=== PATIENT | female | born 1960 | race Caucasian/White ===

== ENCOUNTER 2017-07-15 22:50 | Emergency (ER) | payer MEDICAID ==
[~2017-07-15] VITALS: Ht 160 cm; Wt 65.9 kg
[~2017-07-15 22:50] MED LIST: ATI1T PO; ATOR10TA87 PO; HTN MED; HYDR-569 PO; MOT200T PO; NORCO10T PO
[2017-07-15 22:54] VITALS: BP 184/91
== END 2017-07-15 23:57 | disposition left against medical advice (07) ==
LOC: ER 22:51
DX: M54.2 Cervicalgia (principal); Z53.21 Procedure and treatment not carried out due to patient leaving prior to being seen by health care provider

== ENCOUNTER 2019-03-12 12:49 | Emergency (ER) | payer MEDICAID ==
[~2019-03-12] VITALS: Ht 162.6 cm; Wt 65.9 kg
[~2019-03-12 12:49] MED LIST changes: +HYDR-4383 PO; -HYDR-569 PO
[2019-03-12] MEDS ORDERED: ACET-2615 PO (13:25)
[2019-03-12] MEDS ORDERED: MELO-100 PO (13:25)
[2019-03-12] MEDS ORDERED: ketorolac trometh. 30mg/ml inj. IV ONE (13:25)
[2019-03-12] MEDS ORDERED: orphenadrine citrate 60mg/2ml inj. IM ONE (13:25)
[2019-03-12] MEDS ORDERED: HYDR-3965 PO (13:25)
[2019-03-12] MEDS ORDERED: acetaminophen 325mg tablet PO ONE (13:25)
[2019-03-12] MEDS ORDERED: HYDROcodone/acetaminophen 5mg/325mg tablet PO ONE (13:25)
[2019-03-12] MEDS ORDERED: ondansetron 4mg rapidly disintigrating tab PO ONE (13:25)
[2019-03-12] MEDS ORDERED: CYCL-1 PO (13:25)
[2019-03-12 13:43] VITALS: BP 142/90
== END 2019-03-12 13:52 | disposition home or self-care (01) ==
LOC: ER 12:50
DX: M25.511 Pain in right shoulder (principal); I10 Essential (primary) hypertension; G89.29 Other chronic pain; F41.9 Anxiety disorder, unspecified; F32.9 Major depressive disorder, single episode, unspecified; Z90.49 Acquired absence of other specified parts of digestive tract; Z98.890 Other specified postprocedural states; Z56.0 Unemployment, unspecified; Z79.899 Other long term (current) drug therapy
CPT/HCPCS: 96372; 96374; 99284; J1885; J2360

== ENCOUNTER 2019-04-08 15:59 | Inpatient (IN) | payer MEDICAID ==
[2019-04-08] VITALS (13 sets, daily range): BP systolic 111–149; BP diastolic 68–89
[~2019-04-08] VITALS: Ht 162.6 cm; Wt 80.0 kg
[~2019-04-08 15:59] MED LIST changes: +ACET-2615 PO; +CYCL-1 PO; +HYDR-3965 PO; +MELO-100 PO; +STEMI BOX INJ NR
[2019-04-08] MEDS ORDERED: normal saline 1000ml 1,000 ML IV ONE ×2 (16:07→18:10)
[2019-04-08] MEDS ORDERED: heparin 25,000 UNIT/250ml bag 250 ML IV SCH (16:08)
[2019-04-08] MEDS ORDERED: heparin 10,000 units/1 ML INJ IV ONE ×2 (16:10→16:20)
--- NOTE | 2019-04-08 16:10 | NUR ---
patient prepped for orthodontic laboratory technician,shaved bilateral groin cleaned with chlorhexidine,patient changed in a gown.on nitro 10mcg.
[2019-04-08] MEDS: nitroGLYCERIN-Tridil 50MG/D5W 250 ML IV PRN ×2 (16:17→16:38)
[2019-04-08 16:20] LABS: BASOPHILS % (AUTO) 0.3 % (0-1); EOSINOPHILS # (AUTO) 0.2 X10'3 (0-0.9); EOSINOPHILS % (AUTO) 2.1 % (0-6); HEMATOCRIT 40.9 % (35.0-45.0); HEMOGLOBIN 13.5 g/dl (12.0-16.0); LYMPHOCYTES # (AUTO) 2.2 X10'3 (1.1-4.8); LYMPHOCYTES % (AUTO) 26.8 % (21-51); MEAN CORPUSCULAR HEMOGLOBIN 30.2 PG (27.0-31.0); MEAN CORPUSCULAR VOLUME 91.5 FL (78-98); MEAN PLATELET VOLUME 10.1 FL (7.4-10.4); MONOCYTES # (AUTO) 0.6 X10'3 (0-0.9); NEUTROPHILS # (AUTO) 5.3 X10'3 (1.8-7.7); NEUTROPHILS % (AUTO) 63.8 % (42-75); PLATELET COUNT 230 X10'3 (140-440); RED BLOOD COUNT 4.47 X10'6 (4.20-5.60); RED CELL DISTRIBUTION WIDTH 14.2 % (11.5-14.5); WHITE BLOOD COUNT 8.4 X10'3 (4.5-11.0)
[2019-04-08] MEDS ORDERED: heparin 10,000 units/1 ML INJ IV PRN (16:20)
[2019-04-08] MEDS ORDERED: morphine 4 MG/ML inj SYRINge IV ONE (16:20)
[2019-04-08] MEDS ORDERED: normal saline 1000ML IV soln IVB ONE (16:25)
--- NOTE | 2019-04-08 16:30 | NUR ---
awaiting for slab stripper to take patient.
--- NOTE | 2019-04-08 16:31 | NUR ---
dr. simons at bedside,changed nitro drip to 15 mcg/hr per MD order.
--- NOTE | 2019-04-08 16:32 | NUR ---
temp mary placed.
--- NOTE | 2019-04-08 16:36 | NUR ---
Bhupinder cheesemaking laborer at bedside.
[2019-04-08 16:37] LABS: ALANINE AMINOTRANSFERASE 32 U/L (12-78); ALBUMIN 3.4 G/DL (3.4-5.0); ALBUMIN/GLOBULIN RATIO 0.9 (1.1-1.5); ALKALINE PHOSPHATASE 131 IU/L (46-116); ANION GAP 11 (8-16); ASPARTATE AMINO TRANSFERASE 21 U/L (10-37); BILIRUBIN,TOTAL 0.3 MG/DL (0.1-1.0); BLOOD UREA NITROGEN 18 MG/DL (7-18); BUN/CREATININE RATIO 20.5 (6.6-38.0); CHLORIDE 107 MMOL/L (99-107); CREATININE 0.88 MG/DL (0.40-0.90); GLUCOSE 140 MG/DL (70-104); POTASSIUM 4.1 MMOL/L (3.5-5.1); SODIUM 140 MMOL/L (135-145); TOTAL CARBON DIOXIDE 21.8 MMOL/L (24-32); TOTAL PROTEIN 7.2 G/DL (6.4-8.2); eGFR 66 ML/MIN
--- NOTE | 2019-04-08 16:38 | NUR ---
BP 126/79mmhg,Dr. Estrada at bedside,changed nitro drip to 20mcg/hr.
--- NOTE | 2019-04-08 16:40 | NUR ---
patient to laboratory miller.
[2019-04-08 16:41] LABS: PARTIAL THROMBOPLASTIN TIME 27 SECONDS (22-32)
[2019-04-08] MEDS ORDERED: midazolam 2 mg/2 ml injection ONE (16:46)
[2019-04-08] MEDS ORDERED: heparin 1,000unit/ml 10ml vial 10 ML ONE (16:46)
[2019-04-08] MEDS ORDERED: iohexol 350 MG/1 ML 200ml bottle ONE (16:46)
[2019-04-08] MEDS ORDERED: fentaNYL/PF 50MCG/1 ML 2ML syringe ONE (16:46)
[2019-04-08] MEDS ORDERED: LIDOcaine 1% (10mg/ml)w/preservative injection 20ml MDV ONE (16:46)
[2019-04-08] MEDS ORDERED: tirofiban 12.5mg in NS 250mL 250 ML IV ONE (17:24)
--- NOTE | 2019-04-08 17:50 | NUR ---
RECEIVED BEDSIDE REPORT FORM KRISSY APDILLA. PT R GROIN SCANT BLEEDING TO DRSG. PRESSURE APPLIED X 15 MIN. DRAINAGE CIRCLED. PT RESTING. VS WNL. PT WITH NS INFUSING @100, AGGRASTAT INFUSING. ORDERS FAXED TO PHARMACY. Problems reprioritized. Patient report given, questions answered & plan of care reviewed with ELMER PADILLA. Addendum: 04/08/19 at 1825 by Bharati Maria RN Amended: Links added.
[2019-04-08] MEDS ORDERED: nitroGLYCERIN 0.4mg SUBLingual tab SL PRN (18:10)
[2019-04-08] MEDS ORDERED: OXAZEpam 15mg capsule PO PRN (18:10)
[2019-04-08] MEDS ORDERED: ondansetron/PF 4mg/2ml inj IV PRN (18:10)
[2019-04-08] MEDS ORDERED: proCHLORperazine 10 MG/2 ml inj IV PRN (18:10)
[2019-04-08] MEDS ORDERED: clopidogrel 300mg tablet PO ONE (18:10)
[2019-04-08] MEDS: atorvastatin 20mg tablet PO SCH (21:00)
[2019-04-08] MEDS: HYDROcodone/acetaminophen 5mg/325mg tablet PO PRN (23:38)
[2019-04-09 02:00] VITALS: BP 108/55
--- NOTE | 2019-04-09 04:24 | NUR ---
Student documentation: I have reviewed and agree with all interventions, assessments performed and documented by Luz CURTIS. Student Medication Administration: For this medication-pass time frame, all medication were reviewed, dispensed, administered and documented per hospital policy by Luz CURTIS.
--- NOTE | 2019-04-09 04:25 | NUR ---
[place] Medication Administration: For this medication-pass time frame, all medication were reviewed, dispensed, administered and documented per hospital policy by Jessenia PADILLA. [facility] documentation: I have reviewed all interventions, assessments performed and documented by Jessenia PADILLA.
[2019-04-09 06:00] VITALS: BP 126/55
--- NOTE | 2019-04-09 06:00 | NUR ---
Patient in room PCU 3018. I have received report from Annamaria PADILLA and had the opportunity to ask questions and assume patient care.
--- NOTE | 2019-04-09 06:32 | NUR ---
Problems reprioritized. Patient report given, questions answered & plan of care reviewed with Franck PADILLA.
[2019-04-09 07:33] LABS: CHOL/HDL RATIO 7.2 (0.00-4.99); CHOLESTEROL 173 MG/DL (0-200); HDL CHOLESTEROL 24 MG/DL (35-60); LDL CHOLESTEROL 104 MG/DL (50-100); TRIGLYCERIDES 326 MG/DL (20-135)
[2019-04-09] MEDS: clopidogrel 75mg tablet PO SCH (07:43)
[2019-04-09] MEDS: HYDROcodone/acetaminophen 5mg/325mg tablet PO PRN (07:44)
[2019-04-09] MEDS: aspirin 81mg tablet.DR PO SCH (08:30)
[2019-04-09] MEDS: metoprolol tartrate 12.5mg (1/2 tablet) PO SCH ×2 (08:31→20:11)
[2019-04-09 08:53] LABS: BASOPHILS % (AUTO) 0.4 % (0-1); EOSINOPHILS # (AUTO) 0.1 X10'3 (0-0.9); EOSINOPHILS % (AUTO) 1.9 % (0-6); HEMOGLOBIN 11.6 g/dl (12.0-16.0); LYMPHOCYTES # (AUTO) 2.3 X10'3 (1.1-4.8); LYMPHOCYTES % (AUTO) 39.8 % (21-51); MEAN CORPUSCULAR HEMOGLOBIN 30.3 PG (27.0-31.0); MEAN CORPUSCULAR HGB CONC 33.2 g/dL (33.0-36.5); MEAN CORPUSCULAR VOLUME 91.2 FL (78-98); MEAN PLATELET VOLUME 10.5 FL (7.4-10.4); MONOCYTES # (AUTO) 0.4 X10'3 (0-0.9); MONOCYTES % (AUTO) 6.8 % (2-12); NEUTROPHILS % (AUTO) 51.1 % (42-75); PLATELET COUNT 187 X10'3 (140-440); RED BLOOD COUNT 3.84 X10'6 (4.20-5.60); SODIUM 141 MMOL/L (135-145); WHITE BLOOD COUNT 5.8 X10'3 (4.5-11.0)
[2019-04-09 08:55] LABS: ALBUMIN 2.8 G/DL (3.4-5.0); ANION GAP 11 (8-16); BLOOD UREA NITROGEN 17 MG/DL (7-18); BUN/CREATININE RATIO 21.8 (6.6-38.0); CALCIUM 7.5 MG/DL (8.5-10.1); CHLORIDE 108 MMOL/L (99-107); CREATININE 0.78 MG/DL (0.40-0.90); GLUCOSE 105 MG/DL (70-104); POTASSIUM 4.3 MMOL/L (3.5-5.1); TOTAL CARBON DIOXIDE 21.8 MMOL/L (24-32); eGFR 76 ML/MIN
[2019-04-09 09:42] LABS: LARGE PLATELETS FEW; PLATELET ESTIMATE NORMAL
[2019-04-09 11:00] VITALS: BP 121/70
--- NOTE | 2019-04-09 12:41 | NUR ---
No lunch tray sent up. Faxed late tray request to dietary with pt's preferred items requested. Provided with yogurt while waiting.
[2019-04-09] MEDS: nicotine 21mg patch - 24 hr TD SCH (12:49)
[2019-04-09 15:00] VITALS: BP 117/60
[2019-04-09] MEDS: HYDROcodone/acetaminophen 10/325mg tab PO PRN (15:44)
[2019-04-09] MEDS ORDERED: FLUO-1 PO (16:42)
[2019-04-09] MEDS ORDERED: UMEC1DIS IH (16:42)
[2019-04-09] MEDS ORDERED: ACET-75 PO (16:42)
[2019-04-09] MEDS ORDERED: NITR0.4T48 PO (16:42)
[2019-04-09] MEDS ORDERED: ALBU90AE IH (16:42)
[2019-04-09] MEDS ORDERED: AMLO2.5T5 PO (16:42)
[2019-04-09 18:00] VITALS: BP 128/82
--- NOTE | 2019-04-09 19:08 | NUR ---
Patient in room PCU 3018. I have received report from VALERIE Juárez and had the opportunity to ask questions and assume patient care. Patient is awake, pleasant, and in no apparent distress. Denies Chest pain, but experiencing chronic lower back pain states pain level 5 from 0-10. Denies any other needs at this time. Will continue to monitor.
[2019-04-09] MEDS: atorvastatin 20mg tablet PO SCH (20:11)
[2019-04-09 22:00] VITALS: BP 90/58
[2019-04-10] MEDS: HYDROcodone/acetaminophen 10/325mg tab PO PRN ×2 (01:48→08:18)
[2019-04-10 03:00] VITALS: BP 98/80
--- NOTE | 2019-04-10 06:11 | NUR ---
Problems reprioritized. Patient report given, questions answered & plan of care reviewed with VALERIE Sarmiento.
[2019-04-10 06:30] VITALS: BP 149/81
[2019-04-10 06:37] LABS: BASOPHILS % (AUTO) 0.3 % (0-1); EOSINOPHILS # (AUTO) 0.1 X10'3 (0-0.9); EOSINOPHILS % (AUTO) 2.2 % (0-6); HEMATOCRIT 32.5 % (35.0-45.0); LYMPHOCYTES # (AUTO) 2.6 X10'3 (1.1-4.8); LYMPHOCYTES % (AUTO) 37.3 % (21-51); MEAN CORPUSCULAR HEMOGLOBIN 30.7 PG (27.0-31.0); MEAN CORPUSCULAR HGB CONC 33.7 g/dL (33.0-36.5); MEAN CORPUSCULAR VOLUME 91.2 FL (78-98); MEAN PLATELET VOLUME 10.4 FL (7.4-10.4); MONOCYTES # (AUTO) 0.5 X10'3 (0-0.9); MONOCYTES % (AUTO) 7.8 % (2-12); NEUTROPHILS # (AUTO) 3.6 X10'3 (1.8-7.7); NEUTROPHILS % (AUTO) 52.4 % (42-75); PLATELET COUNT 169 X10'3 (140-440); RED BLOOD COUNT 3.56 X10'6 (4.20-5.60); RED CELL DISTRIBUTION WIDTH 13.9 % (11.5-14.5); WHITE BLOOD COUNT 6.9 X10'3 (4.5-11.0)
[2019-04-10 06:38] LABS: ALBUMIN 2.7 G/DL (3.4-5.0); ANION GAP 8 (8-16); BLOOD UREA NITROGEN 18 MG/DL (7-18); BUN/CREATININE RATIO 22.8 (6.6-38.0); CHLORIDE 108 MMOL/L (99-107); CREATININE 0.79 MG/DL (0.40-0.90); GLUCOSE 96 MG/DL (70-104); POTASSIUM 4.3 MMOL/L (3.5-5.1); SODIUM 141 MMOL/L (135-145); TOTAL CARBON DIOXIDE 25.3 MMOL/L (24-32); eGFR 75 ML/MIN
--- NOTE | 2019-04-10 06:39 | NUR ---
Patient in room PCU 3018A. I have received report from Jessenia and had the opportunity to ask questions and assume patient care.
[2019-04-10 07:14] VITALS: BP 149/81
[2019-04-10] MEDS: clopidogrel 75mg tablet PO SCH (08:12)
[2019-04-10] MEDS: aspirin 81mg tablet.DR PO SCH (08:12)
[2019-04-10 08:13] VITALS: BP_SYST 149
[2019-04-10] MEDS: metoprolol tartrate 12.5mg (1/2 tablet) PO SCH (08:13)
[2019-04-10] MEDS: nicotine 21mg patch - 24 hr TD SCH (08:14)
[2019-04-10] MEDS ORDERED: ASPI-1071 PO (08:25)
[2019-04-10] MEDS ORDERED: METO25TA6 PO (08:25)
[2019-04-10] MEDS ORDERED: ATOR40TA PO (08:25)
[2019-04-10] MEDS ORDERED: CLOP75TA35 PO (08:25)
--- NOTE | 2019-04-10 10:45 | NUR ---
Per MD patient stable for discharge home, discharge packet printed and given to patient. All questions answered. New prescriptions faxed to [facility]. Patient instructed to f/u with Dr. Mann within 2 weeks. IV removed with catheter intact, tele monitor removed. Patient escorted via wheelchair to private vehicle with family.
== END 2019-04-10 10:47 | disposition home or self-care (01) | DRG 174 ==
LOC: ER 15:59 → UNDOADMIN 18:20 → PCU 3S 18:20
PROVIDERS: ADMIT Internal Medicine Interventional Cardiology; ATTEND Internal Medicine Interventional Cardiology
PROC: 4A023N7 Measurement of Cardiac Sampling and Pressure, Left Heart, Percutaneous Approach (ICD-10-PCS; principal; 2019-04-08)
PROC: 027034Z Dilation of Coronary Artery, One Artery with Drug-eluting Intraluminal Device, Percutaneous Approach (ICD-10-PCS; 2019-04-08)
PROC: B2111ZZ Fluoroscopy of Multiple Coronary Arteries using Low Osmolar Contrast (ICD-10-PCS; 2019-04-08)
PROC: B2151ZZ Fluoroscopy of Left Heart using Low Osmolar Contrast (ICD-10-PCS; 2019-04-08)
DX: I21.09 ST elevation (STEMI) myocardial infarction involving other coronary artery of anterior wall (principal); E78.5 Hyperlipidemia, unspecified; F17.210 Nicotine dependence, cigarettes, uncomplicated; I10 Essential (primary) hypertension; I25.10 Atherosclerotic heart disease of native coronary artery without angina pectoris; F32.9 Major depressive disorder, single episode, unspecified; J44.9 Chronic obstructive pulmonary disease, unspecified; Z79.899 Other long term (current) drug therapy; Z82.49 Family history of ischemic heart disease and other diseases of the circulatory system; Z83.3 Family history of diabetes mellitus; Z71.6 Tobacco abuse counseling
CPT/HCPCS: 36415; 71045; 80048; 80053; 80061; 84484; 85025; 85610; 85730; 87081; 93005; 93306; 93458; 96365; 96366; 96368; 96375; 96376; 99291; A4620; A6258; C1725; C1760; C1769; C1874; C9606; G0378; J1644; J2001; J2250; J2270; J3010; J3246; J3490; J7030; Q9967

== ENCOUNTER 2019-08-22 14:56 | Inpatient (IN) | payer MEDICAID ==
[~2019-08-22] VITALS: Ht 160 cm; Wt 80.0 kg
[~2019-08-22 14:56] MED LIST changes: -ACET-2615 PO; +ACET-75 PO; +ALBU90AE IH; +ASPI-1071 PO; -ATI1T PO; -ATOR10TA87 PO; +ATOR40TA PO; +CLOP75TA35 PO; -CYCL-1 PO; +FLUO-1 PO; -HTN MED; -HYDR-3965 PO; -HYDR-4383 PO; -MELO-100 PO; +METO25TA6 PO; -MOT200T PO; +NITR0.4T48 PO; -NORCO10T PO; -STEMI BOX INJ NR; +UMEC1DIS IH
[2019-08-22] MEDS ORDERED: morphine 4 MG/ML inj SYRINge IV ONE (15:10)
[2019-08-22] MEDS ORDERED: nitroGLYCERIN 0.4mg/hour patch TD ONE (15:10)
[2019-08-22 15:22] LABS: BASOPHILS % (AUTO) 0.3 % (0-1); EOSINOPHILS # (AUTO) 0.1 X10'3 (0-0.9); EOSINOPHILS % (AUTO) 1.5 % (0-6); HEMATOCRIT 40.9 % (35.0-45.0); HEMOGLOBIN 13.8 g/dl (12.0-16.0); LYMPHOCYTES # (AUTO) 2.4 X10'3 (1.1-4.8); LYMPHOCYTES % (AUTO) 31.2 % (21-51); MEAN CORPUSCULAR HEMOGLOBIN 28.9 PG (27.0-31.0); MEAN CORPUSCULAR HGB CONC 33.6 g/dL (33.0-36.5); MEAN CORPUSCULAR VOLUME 85.9 FL (78-98); MEAN PLATELET VOLUME 9.9 FL (7.4-10.4); MONOCYTES # (AUTO) 0.6 X10'3 (0-0.9); MONOCYTES % (AUTO) 7.8 % (2-12); NEUTROPHILS # (AUTO) 4.5 X10'3 (1.8-7.7); NEUTROPHILS % (AUTO) 59.2 % (42-75); PLATELET COUNT 199 X10'3 (140-440); RED BLOOD COUNT 4.76 X10'6 (4.20-5.60); RED CELL DISTRIBUTION WIDTH 14.9 % (11.5-14.5); WHITE BLOOD COUNT 7.6 X10'3 (4.5-11.0)
[2019-08-22 15:23] LABS: PARTIAL THROMBOPLASTIN TIME 26 SECONDS (22-32)
[2019-08-22 15:26] LABS: ALANINE AMINOTRANSFERASE 27 U/L (12-78); ALBUMIN 3.9 G/DL (3.4-5.0); ALBUMIN/GLOBULIN RATIO 1.1 (1.1-1.5); ALKALINE PHOSPHATASE 111 IU/L (46-116); ANION GAP 6 (8-16); ASPARTATE AMINO TRANSFERASE 21 U/L (10-37); BILIRUBIN,TOTAL 0.5 MG/DL (0.1-1.0); BLOOD UREA NITROGEN 19 MG/DL (7-18); BUN/CREATININE RATIO 24.1 (6.6-38.0); CALCIUM 9.1 MG/DL (8.5-10.1); CHLORIDE 106 MMOL/L (99-107); CREATININE 0.79 MG/DL (0.40-0.90); GLUCOSE 90 MG/DL (70-104); POTASSIUM 4.7 MMOL/L (3.5-5.1); SODIUM 140 MMOL/L (135-145); TOTAL PROTEIN 7.6 G/DL (6.4-8.2); eGFR 75 ML/MIN
[2019-08-22 15:32] LABS: ETHANOL < 0.010 GM/DL (0.0-0.010); MAGNESIUM 2.3 MG/DL (1.5-2.4)
[2019-08-22] MEDS ORDERED: normal saline 1000ml 1,000 ML IV SCH (16:18)
[2019-08-22] MEDS ORDERED: HYDROcodone/acetaminophen 5mg/325mg tablet PO PRN (16:20)
[2019-08-22] MEDS ORDERED: potassium Cl 20 mEq SR tablet PO PRN ×2 (16:20)
[2019-08-22] MEDS ORDERED: morphine 2 MG/ML inj. syringe IV PRN ×2 (16:20)
[2019-08-22] MEDS ORDERED: magnesium Cl slow-release 64mg tablet PO PRN (16:20)
[2019-08-22] MEDS ORDERED: magnesium 2GM in 50ml NS 50 ML IV PRN (16:20)
[2019-08-22] MEDS ORDERED: diphenhydrAMINE 25mg capsule PO PRN (16:20)
[2019-08-22] MEDS ORDERED: acetaminophen 650mg rectal suppository RC PRN (16:20)
[2019-08-22] MEDS ORDERED: bisacodyl 10mg suppository rectal RC PRN (16:20)
[2019-08-22] MEDS ORDERED: ondansetron/PF 4mg/2ml inj IV PRN (16:20)
[2019-08-22] MEDS ORDERED: magnesium 4gm in 100ml NS 100 ML IV PRN (16:20)
[2019-08-22] MEDS ORDERED: HYDROcodone/acetaminophen 10/325mg tab PO PRN (16:20)
[2019-08-22] MEDS ORDERED: acetaminophen 325mg tablet PO PRN ×2 (16:20)
[2019-08-22] MEDS ORDERED: mag hydrox/Alum hydrox/simeth 30ml oral suspension PO PRN (16:20)
[2019-08-22] MEDS ORDERED: magnesium hydroxide 30ml (MOM) UD suspension PO PRN (16:20)
[2019-08-22] MEDS ORDERED: potassium CL 10mEq/100ml bag 100 ML IV PRN ×2 (16:20)
[2019-08-22 17:02] LABS: CLARITY,URINE CLEAR (Clear); COLOR,URINE YELLOW (Yellow); GLUCOSE, URINE NEGATIVE (Neg); KETONES,URINE NEGATIVE (Neg); LEUKOCYTE ESTERASE ,URINE SMALL (Neg); NITRITES, URINE NEGATIVE (Neg); OCCULT BLOOD,URINE TRACE-INTACT (Neg); PROTEIN,URINE NEGATIVE (Neg); UROBILINOGEN,URINE 0.2 E.U/dL (0.2-1.0)
[2019-08-22 17:05] LABS: UA COLLECTION TYPE CLN CATCH MIDSTREAM
[2019-08-22 17:09] LABS: BACTERIA,URINE FEW /HPF (Neg); RBC,URINE 0-2 /HPF (0-2); SQUAMOUS EPITHELIAL CELL,UR FEW /LPF (FEW)
[2019-08-22 17:10] LABS: HYALINE CASTS 0-3 /LPF (NEGATIVE); WBC,URINE 20-30 /HPF (0-4)
[2019-08-22] MEDS ORDERED: ATOR40TA72 PO (17:15)
[2019-08-22] MEDS ORDERED: PANT20TA3 PO (17:15)
[2019-08-22] MEDS ORDERED: LISI-600 PO (17:15)
[2019-08-22] MEDS ORDERED: ASPI-1265 PO (17:15)
[2019-08-22] MEDS ORDERED: CLOP75TA35 PO (17:15)
[2019-08-22 17:17] LABS: URINE AMPHETAMINE SCREEN NEGATIVE (Neg); URINE BARBITUATE SCREEN NEGATIVE (Neg); URINE BENZODIAZEPINES SCREEN NEGATIVE (Neg); URINE CANNABINOID SCREEN NEGATIVE (Neg); URINE COCAINE SCREEN NEGATIVE (Neg); URINE METHADONE SCREEN NEGATIVE (Neg); URINE OPIATE SCREEN POSITIVE (Neg); URINE PHENCYCLIDINE SCREEN NEGATIVE (Neg)
--- NOTE | 2019-08-22 19:20 | NUR ---
I have received report from VALERIE Tijerina in ER and had the opportunity to ask questions; awaiting to assume patient care.
[2019-08-22 19:25] VITALS: BP 149/85
--- NOTE | 2019-08-22 19:25 | NUR ---
Patient up to floor via gurney. On 2L NC and stable at this time. Patient brought wallet, shoes, pants, sweat shirt and two watches and placed on bedside table. Obtained 2 lighters and two vials of SL Nitro- will send to pharmacy. No complaints of CP at this time. Will continue to monitor closely.
[2019-08-22] MEDS: K and/or MAG REPLACEMENT MC SCH (19:55)
[2019-08-22] MEDS: heparin, porcine 5000 units/ml vial SQ SCH (20:20)
[2019-08-22] MEDS: metoprolol tartrate 25mg tablet PO SCH (20:21)
[2019-08-22] MEDS ORDERED: ipratropium/albuterol 3ml nebule NEB PRN (21:50)
[2019-08-22] MEDS ORDERED: methylPREDNISolone sod succ 125mg/2ml vial IV ONE (21:50)
[2019-08-22] MEDS: CefTRIAXone/D5W-Rocephin 1gm 50 ML IV SCH (22:28)
[2019-08-22] MEDS: azithromycin 250mg tablet PO SCH (22:29)
--- NOTE | 2019-08-22 22:52 | NUR ---
Dr. Sharpe up to floor and informed him of patient's HR of 40 and sustaining in 50's. Per Dr. Sharpe, will discontinue BP medications and will reassess tomorrow. No additional BP medications scheduled for tonight. Will continue to monitor closely.
[2019-08-22 23:00] VITALS: BP 113/69
[2019-08-23] MEDS: methylPREDNISolone sod succ 125mg/2ml vial IV SCH ×2 (02:24→08:25)
[2019-08-23 02:48] VITALS: BP 120/65
[2019-08-23] MEDS: ipratropium/albuterol 3ml nebule NEB SCH ×2 (03:10→08:24)
[2019-08-23 03:34] LABS: BASOPHILS % (AUTO) 0.1 % (0-1); EOSINOPHILS % (AUTO) 0.2 % (0-6); HEMATOCRIT 39.5 % (35.0-45.0); HEMOGLOBIN 13.1 g/dl (12.0-16.0); LYMPHOCYTES # (AUTO) 0.8 X10'3 (1.1-4.8); LYMPHOCYTES % (AUTO) 15.4 % (21-51); MEAN CORPUSCULAR HGB CONC 33.1 g/dL (33.0-36.5); MEAN CORPUSCULAR VOLUME 87.7 FL (78-98); MONOCYTES # (AUTO) 0.1 X10'3 (0-0.9); MONOCYTES % (AUTO) 1.4 % (2-12); NEUTROPHILS # (AUTO) 4.5 X10'3 (1.8-7.7); NEUTROPHILS % (AUTO) 82.9 % (42-75); PLATELET COUNT 179 X10'3 (140-440); RED CELL DISTRIBUTION WIDTH 14.7 % (11.5-14.5); WHITE BLOOD COUNT 5.4 X10'3 (4.5-11.0)
[2019-08-23 03:40] LABS: ALANINE AMINOTRANSFERASE 91 U/L (12-78); ALBUMIN 3.5 G/DL (3.4-5.0); ALBUMIN/GLOBULIN RATIO 0.9 (1.1-1.5); ALKALINE PHOSPHATASE 124 IU/L (46-116); ANION GAP 8 (8-16); ASPARTATE AMINO TRANSFERASE 83 U/L (10-37); BILIRUBIN,TOTAL 0.5 MG/DL (0.1-1.0); BLOOD UREA NITROGEN 21 MG/DL (7-18); BUN/CREATININE RATIO 23.6 (6.6-38.0); CALCIUM 8.9 MG/DL (8.5-10.1); CHLORIDE 105 MMOL/L (99-107); CREATININE 0.89 MG/DL (0.40-0.90); GLUCOSE 152 MG/DL (70-104); POTASSIUM 4.5 MMOL/L (3.5-5.1); SODIUM 137 MMOL/L (135-145); TOTAL CARBON DIOXIDE 24.5 MMOL/L (24-32); TOTAL PROTEIN 7.2 G/DL (6.4-8.2); eGFR 65 ML/MIN
[2019-08-23 03:44] LABS: MAGNESIUM 2.2 MG/DL (1.5-2.4); PHOSPHORUS 3.7 MG/DL (2.3-4.5)
--- NOTE | 2019-08-23 06:19 | NUR ---
Problems reprioritized. Patient report given, questions answered & plan of care reviewed with VALERIE Andrade and VALERIE Pena.
--- NOTE | 2019-08-23 06:23 | NUR ---
Patient in room PCU 3028. I have received report from Romario and had the opportunity to ask questions and assume patient care.
--- NOTE | 2019-08-23 06:36 | NUR ---
Patient in room PCU 3028. I have received report from Romario PADILLA and had the opportunity to ask questions and assume patient care. Patient asleep and resting comfortably. In no acute distress. Will continue to monitor.
[2019-08-23 07:00] VITALS: BP 121/72
[2019-08-23] MEDS ORDERED: pantoprazole 40mg Tablet.DR PO SCH (07:30)
[2019-08-23] MEDS ORDERED: atorvastatin 20mg tablet PO SCH (08:00)
[2019-08-23] MEDS ORDERED: lisinopril 10 MG tablet PO SCH (08:00)
[2019-08-23] MEDS ORDERED: aspirin 81mg tab.chew PO SCH (08:00)
[2019-08-23] MEDS: K and/or MAG REPLACEMENT MC SCH (08:00)
[2019-08-23] MEDS ORDERED: clopidogrel 75mg tablet PO SCH (08:00)
[2019-08-23] MEDS: azithromycin 250mg tablet PO SCH (08:19)
[2019-08-23] MEDS: heparin, porcine 5000 units/ml vial SQ SCH (08:22)
[2019-08-23] MEDS: metoprolol tartrate 25mg tablet PO SCH (08:24)
[2019-08-23] MEDS: CefTRIAXone/D5W-Rocephin 1gm 50 ML IV SCH ×3 (08:26→12:03)
[2019-08-23] MEDS ORDERED: AZI25OT PO (09:34)
[2019-08-23] MEDS ORDERED: PRED10TA23 PO (09:34)
[2019-08-23] MEDS ORDERED: CEFD300C3 PO (09:34)
[2019-08-23] MEDS ORDERED: pneumococcal 23-VAL P-sac vacc 25 mcg/0.5ml vial IMVAC ONE (10:00)
[2019-08-23] MEDS ORDERED: [UNRECOGNIZED DRUG - CODE] TD (10:48)
[2019-08-23 11:00] VITALS: BP 135/68
--- NOTE | 2019-08-23 14:08 | NUR ---
patient is stable for discharge per MD orders, all discharge instructions reviewed with patient and questions , new prescriptions called into [facility] in [facility], PIV DC'd, TELE DC'd, belongings collected and sent with patient, patient walked to lobby, picked up by daughter.
--- NOTE | 2019-08-23 15:19 | NUR ---
[place] documentation: I have reviewed and agree with all interventions, assessments performed and documented by VALERIE Pena. [place] Medication Administration: For this medication-pass time frame, all medication were reviewed, dispensed, administered and documented per hospital policy by VALERIE Pena.
== END 2019-08-23 13:55 | disposition home or self-care (01) | DRG 198 ==
LOC: ER 14:56 → ED HOLD 16:18 → PCU 3S 19:20 → OBSVTOIN 08-23 08:20
PROVIDERS: ADMIT Family Medicine; ATTEND Family Medicine
PROC: 3E0234Z Introduction of Serum, Toxoid and Vaccine into Muscle, Percutaneous Approach (ICD-10-PCS; principal; 2019-08-23)
DX: I24.9 Acute ischemic heart disease, unspecified (principal); J18.9 Pneumonia, unspecified organism; R07.89 Other chest pain; I25.10 Atherosclerotic heart disease of native coronary artery without angina pectoris; J44.0 Chronic obstructive pulmonary disease with (acute) lower respiratory infection; E78.5 Hyperlipidemia, unspecified; F17.210 Nicotine dependence, cigarettes, uncomplicated; F32.9 Major depressive disorder, single episode, unspecified; I10 Essential (primary) hypertension; F12.90 Cannabis use, unspecified, uncomplicated; F41.9 Anxiety disorder, unspecified; G89.29 Other chronic pain; M54.9 Dorsalgia, unspecified; K21.9 Gastro-esophageal reflux disease without esophagitis; N39.0 Urinary tract infection, site not specified; Z79.02 Long term (current) use of antithrombotics/antiplatelets; Z79.82 Long term (current) use of aspirin; Z79.899 Other long term (current) drug therapy; Z81.8 Family history of other mental and behavioral disorders; I25.2 Old myocardial infarction; Z82.49 Family history of ischemic heart disease and other diseases of the circulatory system; Z87.442 Personal history of urinary calculi; Z90.49 Acquired absence of other specified parts of digestive tract; Z95.5 Presence of coronary angioplasty implant and graft; Z23 Encounter for immunization
CPT/HCPCS: 36415; 71045; 80053; 80305; 80320; 81001; 83735; 83880; 84100; 84484; 85025; 85610; 85730; 87081; 87088; 90732; 93005; 94640; 94760; 96374; 99285; G0378; J0696; J1644; J2270; J2930; J7030

== ENCOUNTER 2020-05-21 17:26 | Emergency (ER) | payer MEDICAID ==
[~2020-05-21] VITALS: Ht 160 cm; Wt 77.3 kg
[~2020-05-21 17:26] MED LIST changes: -ASPI-1071 PO; +ASPI-1265 PO; -ATOR40TA PO; +ATOR40TA72 PO; +AZI25OT PO; +LISI-600 PO; +PANT20TA18 PO; +[UNRECOGNIZED DRUG - CODE] TD
[2020-05-21] MEDS ORDERED: AZIT250T2 PO (17:44)
--- NOTE | 2020-05-21 17:51 | NUR ---
Pt. is addressing HTN with [employer] PREVENTION MANAGER, will be starting medications
[2020-05-21 19:21] VITALS: BP 191/93
== END 2020-05-21 19:51 | disposition home or self-care (01) ==
LOC: ER 17:27
DX: J06.9 Acute upper respiratory infection, unspecified (principal); I10 Essential (primary) hypertension; G89.29 Other chronic pain; M54.9 Dorsalgia, unspecified; F41.9 Anxiety disorder, unspecified; F32.9 Major depressive disorder, single episode, unspecified; I25.10 Atherosclerotic heart disease of native coronary artery without angina pectoris; I21.9 Acute myocardial infarction, unspecified; F17.210 Nicotine dependence, cigarettes, uncomplicated; Z90.49 Acquired absence of other specified parts of digestive tract; Z98.890 Other specified postprocedural states; Z79.899 Other long term (current) drug therapy; Z20.828 Contact with and (suspected) exposure to other viral communicable diseases; Z56.0 Unemployment, unspecified
CPT/HCPCS: 36415; 87635; 99283

== ENCOUNTER 2020-08-24 11:19 | Emergency (ER) | payer MEDICAID ==
[~2020-08-24] VITALS: Ht 160 cm; Wt 80.0 kg
[~2020-08-24 11:19] MED LIST changes: +CLOP75TA34 PO; -CLOP75TA35 PO; +NICO-732 TD; -[UNRECOGNIZED DRUG - CODE] TD
[2020-08-24 12:35] LABS: BASOPHILS % (AUTO) 0.4 % (0-1); EOSINOPHILS # (AUTO) 0.1 X10'3 (0-0.9); EOSINOPHILS % (AUTO) 1.3 % (0-6); HEMOGLOBIN 14.3 g/dl (12.0-16.0); LYMPHOCYTES # (AUTO) 2.2 X10'3 (1.1-4.8); LYMPHOCYTES % (AUTO) 24.2 % (21-51); MEAN CORPUSCULAR HEMOGLOBIN 29.6 PG (27.0-31.0); MEAN CORPUSCULAR HGB CONC 33.4 g/dL (33.0-36.5); MEAN CORPUSCULAR VOLUME 88.8 FL (78-98); MEAN PLATELET VOLUME 9.9 FL (7.4-10.4); MONOCYTES # (AUTO) 0.5 X10'3 (0-0.9); MONOCYTES % (AUTO) 5.8 % (2-12); NEUTROPHILS # (AUTO) 6.2 X10'3 (1.8-7.7); NEUTROPHILS % (AUTO) 68.3 % (42-75); PLATELET COUNT 234 X10'3 (140-440); RED BLOOD COUNT 4.84 X10'6 (4.20-5.60); RED CELL DISTRIBUTION WIDTH 13.3 % (11.5-14.5)
[2020-08-24 12:52] LABS: ALANINE AMINOTRANSFERASE 46 U/L (12-78); ALBUMIN 3.6 G/DL (3.4-5.0); ALBUMIN/GLOBULIN RATIO 0.8 (1.1-1.5); ALKALINE PHOSPHATASE 151 IU/L (46-116); ANION GAP 9 (8-16); ASPARTATE AMINO TRANSFERASE 21 U/L (10-37); BILIRUBIN,TOTAL 0.4 MG/DL (0.1-1.0); BLOOD UREA NITROGEN 12 MG/DL (7-18); BUN/CREATININE RATIO 13.3 (6.6-38.0); CALCIUM 9.2 MG/DL (8.5-10.1); CHLORIDE 104 MMOL/L (99-107); GLUCOSE 132 MG/DL (70-104); POTASSIUM 4.4 MMOL/L (3.5-5.1); SODIUM 139 MMOL/L (135-145); TOTAL CARBON DIOXIDE 25.7 MMOL/L (24-32); TOTAL PROTEIN 7.9 G/DL (6.4-8.2); eGFR 64 ML/MIN
[2020-08-24 13:53] VITALS: BP 144/86
== END 2020-08-24 13:55 | disposition home or self-care (01) ==
LOC: ER 11:20
DX: R00.2 Palpitations (principal); R42 Dizziness and giddiness; I25.10 Atherosclerotic heart disease of native coronary artery without angina pectoris; I10 Essential (primary) hypertension; I25.2 Old myocardial infarction; G89.29 Other chronic pain; F41.9 Anxiety disorder, unspecified; F32.9 Major depressive disorder, single episode, unspecified; Z87.01 Personal history of pneumonia (recurrent); Z90.89 Acquired absence of other organs; Z98.890 Other specified postprocedural states; Z56.0 Unemployment, unspecified; Z79.82 Long term (current) use of aspirin; Z79.2 Long term (current) use of antibiotics; Z79.899 Other long term (current) drug therapy
CPT/HCPCS: 36415; 71045; 80053; 84484; 85025; 93005; 99285

== ENCOUNTER 2021-05-02 01:25 | Inpatient (IN) | payer MEDICAID ==
[~2021-05-02] VITALS: Ht 160 cm; Wt 80.0 kg
[2021-05-02] VITALS (7 sets, daily range): BP systolic 114–141; BP diastolic 57–82
[~2021-05-02 01:25] MED LIST changes: -LISI-600 PO; +LISI20TA28 PO; +LOP25T PO; -METO25TA6 PO; -NITR0.4T48 PO; +NITR0.4T48 SL
[2021-05-02 02:11] LABS: BASOPHILS % (AUTO) 0.3 % (0-1); EOSINOPHILS # (AUTO) 0.2 X10'3 (0-0.9); EOSINOPHILS % (AUTO) 2.4 % (0-6); HEMATOCRIT 40.8 % (35.0-45.0); HEMOGLOBIN 13.7 g/dl (12.0-16.0); LYMPHOCYTES # (AUTO) 2.9 X10'3 (1.1-4.8); LYMPHOCYTES % (AUTO) 34.2 % (21-51); MEAN CORPUSCULAR HEMOGLOBIN 30.1 PG (27.0-31.0); MEAN CORPUSCULAR HGB CONC 33.6 g/dL (33.0-36.5); MEAN CORPUSCULAR VOLUME 89.6 FL (78-98); MEAN PLATELET VOLUME 9.3 FL (7.4-10.4); MONOCYTES # (AUTO) 0.6 X10'3 (0-0.9); MONOCYTES % (AUTO) 7.1 % (2-12); NEUTROPHILS # (AUTO) 4.7 X10'3 (1.8-7.7); PLATELET COUNT 232 X10'3 (140-440); RED BLOOD COUNT 4.56 X10'6 (4.20-5.60); RED CELL DISTRIBUTION WIDTH 13.8 % (11.5-14.5); WHITE BLOOD COUNT 8.4 X10'3 (4.5-11.0)
[2021-05-02 02:30] LABS: ALANINE AMINOTRANSFERASE 42 U/L (12-78); ALBUMIN 3.5 G/DL (3.4-5.0); ALBUMIN/GLOBULIN RATIO 0.9 (1.1-1.5); ALKALINE PHOSPHATASE 114 IU/L (46-116); ANION GAP 13 (8-16); ASPARTATE AMINO TRANSFERASE 17 U/L (10-37); BILIRUBIN,TOTAL 0.2 MG/DL (0.1-1.0); BLOOD UREA NITROGEN 21 MG/DL (7-18); BUN/CREATININE RATIO 21.9 (6.6-38.0); CALCIUM 8.8 MG/DL (8.5-10.1); CHLORIDE 107 MMOL/L (99-107); CREATININE 0.96 MG/DL (0.40-0.90); GLUCOSE 142 MG/DL (70-104); POTASSIUM 4.1 MMOL/L (3.5-5.1); SODIUM 141 MMOL/L (135-145); TOTAL CARBON DIOXIDE 21.2 MMOL/L (24-32); TOTAL PROTEIN 7.4 G/DL (6.4-8.2); eGFR 59 ML/MIN
[2021-05-02] MEDS ORDERED: ondansetron 4mg rapidly disintigrating tab PO ONE (04:25)
[2021-05-02] MEDS ORDERED: HYDROcodone/acetaminophen 10/325mg tab PO ONE (04:25)
[2021-05-02] MEDS ORDERED: nicotine 21mg patch - 24 hr TD ONE (04:55)
[2021-05-02] MEDS ORDERED: magnesium Cl slow-release 64mg tablet PO PRN (06:25)
[2021-05-02] MEDS ORDERED: potassium Cl 20 mEq SR tablet PO PRN ×2 (06:25)
[2021-05-02] MEDS ORDERED: PERFLUTREN PROTEIN-A MICROSPHR (Optison) 0.22 MG/ML 3ML VIAL IV ONE (06:25)
[2021-05-02] MEDS ORDERED: potassium Cl 40MEQ/1/2NS 520ml 520 ML IV PRN ×2 (06:25)
[2021-05-02] MEDS ORDERED: acetaminophen 325mg tablet PO PRN (06:25)
[2021-05-02] MEDS ORDERED: magnesium 2GM in 50ml NS 50 ML IV PRN (06:25)
[2021-05-02] MEDS ORDERED: magnesium 4gm in 100ml NS 100 ML IV PRN (06:25)
[2021-05-02] MEDS ORDERED: ondansetron/PF 4mg/2ml inj IV PRN (06:25)
[2021-05-02] MEDS ORDERED: metoprolol tartrate 1mg/ml inj IV PRN (07:35)
[2021-05-02] MEDS ORDERED: nitroGLYCERIN 0.4mg SUBLingual tab SL PRN (07:35)
[2021-05-02] MEDS ORDERED: aminophylline 250mg/10ml inj. IV PRN (07:35)
[2021-05-02] MEDS ORDERED: regadenoson 0.4mg/5ml syringe IV ONE (07:35)
[2021-05-02] MEDS ORDERED: NITR0.4T51 SL (07:37)
[2021-05-02] MEDS: K and/or MAG REPLACEMENT MC SCH ×3 (08:00→21:00)
[2021-05-02] MEDS: morphine 2 MG/ML inj. syringe IV PRN ×2 (12:36→20:22)
--- NOTE | 2021-05-02 13:31 | NUR ---
pt enjoying lunch tray
[2021-05-02] MEDS ORDERED: LISI40TA13 PO (13:54)
[2021-05-02] MEDS ORDERED: METO50TA16 PO (13:55)
[2021-05-02] MEDS ORDERED: temazepam 15mg capsule PO PRN (21:00)
--- NOTE | 2021-05-03 00:52 | NUR ---
Pt received in bed 3023C. PT walked to bed without incident. Pt a&ox4, SR on monitor, and VSS. No c/o CP or acute SOB at this time.
[2021-05-03] MEDS: morphine 2 MG/ML inj. syringe IV PRN (01:39)
[2021-05-03 02:00] VITALS: BP 159/63
[2021-05-03 06:00] VITALS: BP 125/69
[2021-05-03 06:35] LABS: BASOPHILS % (AUTO) 0.3 % (0-1); EOSINOPHILS # (AUTO) 0.2 X10'3 (0-0.9); EOSINOPHILS % (AUTO) 2.7 % (0-6); HEMATOCRIT 40.1 % (35.0-45.0); HEMOGLOBIN 13.5 g/dl (12.0-16.0); LYMPHOCYTES # (AUTO) 2.6 X10'3 (1.1-4.8); LYMPHOCYTES % (AUTO) 35.6 % (21-51); MEAN CORPUSCULAR HEMOGLOBIN 30.1 PG (27.0-31.0); MEAN CORPUSCULAR HGB CONC 33.7 g/dL (33.0-36.5); MEAN CORPUSCULAR VOLUME 89.5 FL (78-98); MEAN PLATELET VOLUME 9.8 FL (7.4-10.4); MONOCYTES # (AUTO) 0.6 X10'3 (0-0.9); MONOCYTES % (AUTO) 7.7 % (2-12); NEUTROPHILS # (AUTO) 3.9 X10'3 (1.8-7.7); NEUTROPHILS % (AUTO) 53.7 % (42-75); PLATELET COUNT 192 X10'3 (140-440); RED BLOOD COUNT 4.48 X10'6 (4.20-5.60); RED CELL DISTRIBUTION WIDTH 13.4 % (11.5-14.5); WHITE BLOOD COUNT 7.2 X10'3 (4.5-11.0)
[2021-05-03 07:04] LABS: ALBUMIN 3.2 G/DL (3.4-5.0); ANION GAP 10 (8-16); BLOOD UREA NITROGEN 21 MG/DL (7-18); BUN/CREATININE RATIO 23.6 (6.6-38.0); CALCIUM 8.6 MG/DL (8.5-10.1); CHLORIDE 108 MMOL/L (99-107); CHOL/HDL RATIO 6.8 (0.00-4.99); CHOLESTEROL 211 MG/DL (0-200); CREATININE 0.89 MG/DL (0.40-0.90); GLUCOSE 116 MG/DL (70-104); HDL CHOLESTEROL 31 MG/DL (35-60); LDL CHOLESTEROL 117 MG/DL (50-100); MAGNESIUM 2.3 MG/DL (1.5-2.4); POTASSIUM 4.1 MMOL/L (3.5-5.1); SODIUM 141 MMOL/L (135-145); TOTAL CARBON DIOXIDE 22.8 MMOL/L (24-32); TRIGLYCERIDES 292 MG/DL (20-135); eGFR 65 ML/MIN
[2021-05-03] MEDS ORDERED: FLU VACC QS2021-22(6MOS UP)/PF 60 MCG/0.5 ML SYRINGE IM ONE (09:00)
[2021-05-03] MEDS ORDERED: clopidogrel 75mg tablet PO SCH (10:30)
[2021-05-03] MEDS ORDERED: aspirin 81mg tab.chew PO SCH (10:30)
[2021-05-03] MEDS ORDERED: nitroGLYCERIN 0.4mg SUBLingual tab SL PRN (10:30)
[2021-05-03] MEDS ORDERED: lisinopril 20mg tablet PO SCH (10:38)
[2021-05-03] MEDS ORDERED: atorvastatin 20mg tablet PO SCH (10:38)
[2021-05-03] MEDS ORDERED: albuterol 2.5 MG/3 ML nebule NEB PRN (10:40)
[2021-05-03 11:06] VITALS: BP_SYST 149
--- NOTE | 2021-05-03 13:57 | NUR ---
1200- reviewed discharge with pt. answered all questions, edu about new med. pt has had nitro previously she says and is familiar with it. IV removed, cath intact, vss, deny c/p or sob or n. pt informed me she has belongings entrusted to hospital. 1330- no record of belongings in documentation, report from noc rn. Security and house keeping contacted to check safe, no items of her description. after extensive search of room and nurse station without producing a tazer, knife or cigarettes with charge nurses help , pt agreed to go home at this time and return if they are found. Discharge completed while i was at lunch.
[2021-05-03] MEDS ORDERED: METO-395 PO (16:21)
[2021-05-03] MEDS ORDERED: metoprolol tartrate 50mg tablet PO SCH (20:00)
[2021-05-04] MEDS ORDERED: Umeclidinium Brm/Vilanterol Tr (Anoro Ellipta 62.5-25 Mcg INH) PO SCH (08:00)
== END 2021-05-03 13:50 | disposition home or self-care (01) | DRG 198 ==
LOC: ER 01:26 → ED HOLD 06:28 → PCU 3S 05-03 00:30
PROVIDERS: ADMIT Internal Medicine; ATTEND Internal Medicine
PROC: 4A02XM4 Measurement of Cardiac Total Activity, External Approach (ICD-10-PCS; principal; 2021-05-02)
PROC: 3E073KZ Introduction of Other Diagnostic Substance into Coronary Artery, Percutaneous Approach (ICD-10-PCS; 2021-05-02)
PROC: 3E02340 Introduction of Influenza Vaccine into Muscle, Percutaneous Approach (ICD-10-PCS; 2021-05-03)
DX: I25.110 Atherosclerotic heart disease of native coronary artery with unstable angina pectoris (principal); E78.00 Pure hypercholesterolemia, unspecified; E78.5 Hyperlipidemia, unspecified; F17.210 Nicotine dependence, cigarettes, uncomplicated; F32.A Depression, unspecified; F41.9 Anxiety disorder, unspecified; M54.9 Dorsalgia, unspecified; I10 Essential (primary) hypertension; G89.29 Other chronic pain; I25.2 Old myocardial infarction; Z95.5 Presence of coronary angioplasty implant and graft; Z23 Encounter for immunization; Z56.0 Unemployment, unspecified; Z71.6 Tobacco abuse counseling
CPT/HCPCS: 36415; 71045; 78452; 80048; 80053; 80061; 83735; 83880; 84484; 85025; 87081; 93017; 93306; 99285; A9500; G0378; J2270; J2785

== ENCOUNTER 2022-04-08 12:39 | Emergency (ER) | payer MEDICAID ==
[~2022-04-08] VITALS: Ht 160 cm; Wt 75.0 kg
[~2022-04-08 12:39] MED LIST changes: -ACET-75 PO; -AZI25OT PO; -FLUO-1 PO; -LISI20TA28 PO; +LISI40TA13 PO; -LOP25T PO; +METO-395 PO; +METO50TA16 PO; -NICO-732 TD; -PANT20TA18 PO
[2022-04-08 12:45] VITALS: BP 172/83
== END 2022-04-08 21:04 | disposition left against medical advice (07) ==
LOC: ER 12:39
DX: R22.0 Localized swelling, mass and lump, head (principal); Z53.21 Procedure and treatment not carried out due to patient leaving prior to being seen by health care provider

== ENCOUNTER 2022-06-13 12:21 | Emergency (ER) | payer MEDICAID ==
[~2022-06-13] VITALS: Ht 160 cm; Wt 72.0 kg
[2022-06-13 12:59] LABS: BASOPHILS % (AUTO) 0.2 % (0-1); EOSINOPHILS # (AUTO) 0.1 X10'3 (0-0.9); EOSINOPHILS % (AUTO) 1.3 % (0-6); HEMATOCRIT 46.8 % (35.0-45.0); HEMOGLOBIN 15.6 g/dl (12.0-16.0); LYMPHOCYTES # (AUTO) 3.2 X10'3 (1.1-4.8); LYMPHOCYTES % (AUTO) 30.8 % (21-51); MEAN CORPUSCULAR HEMOGLOBIN 30.3 PG (27.0-31.0); MEAN CORPUSCULAR HGB CONC 33.4 g/dL (33.0-36.5); MEAN CORPUSCULAR VOLUME 90.9 FL (78-98); MEAN PLATELET VOLUME 10.1 FL (7.4-10.4); MONOCYTES # (AUTO) 0.7 X10'3 (0-0.9); MONOCYTES % (AUTO) 6.8 % (2-12); NEUTROPHILS # (AUTO) 6.3 X10'3 (1.8-7.7); NEUTROPHILS % (AUTO) 60.9 % (42-75); PLATELET COUNT 209 X10'3 (140-440); RED BLOOD COUNT 5.14 X10'6 (4.20-5.60); RED CELL DISTRIBUTION WIDTH 13.9 % (11.5-14.5); WHITE BLOOD COUNT 10.4 X10'3 (4.5-11.0)
[2022-06-13 13:12] LABS: ALANINE AMINOTRANSFERASE 74 U/L (12-78); ALBUMIN 4.3 G/DL (3.4-5.0); ALBUMIN/GLOBULIN RATIO 0.9 (1.1-1.5); ALKALINE PHOSPHATASE 148 IU/L (46-116); ANION GAP 16 (8-16); ASPARTATE AMINO TRANSFERASE 34 U/L (10-37); BILIRUBIN,TOTAL 0.3 MG/DL (0.1-1.0); BLOOD UREA NITROGEN 14 MG/DL (7-18); BUN/CREATININE RATIO 15.1 (6.6-38.0); CALCIUM 9.5 MG/DL (8.5-10.1); CHLORIDE 105 MMOL/L (99-107); CREATININE 0.93 MG/DL (0.40-0.90); GLUCOSE 141 MG/DL (70-104); LIPASE 211 U/L (73-393); POTASSIUM 4.2 MMOL/L (3.5-5.1); SODIUM 140 MMOL/L (135-145); TOTAL CARBON DIOXIDE 19.1 MMOL/L (24-32); TOTAL PROTEIN 8.9 G/DL (6.4-8.2); eGFR 61 ML/MIN
[2022-06-13] MEDS ORDERED: HYDROcodone/acetaminophen 10/325mg tab PO ONE (16:40)
[2022-06-13] MEDS ORDERED: ondansetron 4mg rapidly disintigrating tab PO ONE (16:40)
[2022-06-13 16:45] VITALS: BP 172/77
--- NOTE | 2022-06-13 16:50 | NUR ---
TO CT VIA [facility]
[2022-06-13] MEDS ORDERED: methylnaltrexone br 12mg/0.6ml inj***SubQ only SQ ONE (17:35)
[2022-06-13] MEDS ORDERED: bisacodyl 5mg tablet.DR PO ONE (17:35)
[2022-06-13] MEDS ORDERED: BISA-78 PO (17:36)
[2022-06-13] MEDS ORDERED: POLY119P2 PO (17:36)
[2022-06-13 17:48] LABS: CLARITY,URINE CLEAR (Clear); COLOR,URINE YELLOW (Yellow); GLUCOSE, URINE NEGATIVE (Neg); KETONES,URINE TRACE mg/dl (Neg); LEUKOCYTE ESTERASE ,URINE NEGATIVE (Neg); NITRITES, URINE NEGATIVE (Neg); OCCULT BLOOD,URINE TRACE-INTACT (Neg); PROTEIN,URINE 30 mg/dl (Neg); UROBILINOGEN,URINE 0.2 E.U/dL (0.2-1.0)
[2022-06-13 17:54] LABS: UA COLLECTION TYPE CLN CATCH MIDSTREAM
[2022-06-13 18:00] LABS: URINE HCG POSITIVE (NEG)
[2022-06-13 18:06] LABS: MUCUS STRANDS MANY /LPF (Neg); SQUAMOUS EPITHELIAL CELL,UR MANY /LPF (FEW)
--- NOTE | 2022-06-13 18:06 | NUR ---
POSITIVE HCG URINE REPORTED TO DR. MOLINA
[2022-06-13 18:07] LABS: BACTERIA,URINE FEW /HPF (Neg); HYALINE CASTS 0-3 /LPF (NEGATIVE); RBC,URINE 0-2 /HPF (0-2); WBC,URINE 0-4 /HPF (0-4)
[2022-06-13 18:43] LABS: BETA HCG,QUANTITATIVE 5 mIU/ml
== END 2022-06-13 19:11 | disposition home or self-care (01) ==
LOC: ER 12:22
DX: K59.00 Constipation, unspecified (principal); R10.9 Unspecified abdominal pain
CPT/HCPCS: 36415; 74176; 80053; 81001; 81025; 83690; 84145; 84702; 85025; 96372; 99284; J2212

== ENCOUNTER 2022-12-24 17:15 | Emergency (ER) | payer MEDICAID ==
[~2022-12-24] VITALS: Ht 160 cm; Wt 75.0 kg
[~2022-12-24 17:15] MED LIST changes: +BISA-78 PO; +POLY119P2 PO
[2022-12-24] MEDS ORDERED: cloNIDine 0.1 mg tablet PO ONE (19:30)
[2022-12-24] MEDS ORDERED: HYDROcodone/acetaminophen 10/325mg tab PO ONE (20:15)
[2022-12-24 20:22] VITALS: BP 148/91
== END 2022-12-24 20:24 | disposition home or self-care (01) ==
LOC: ER 17:16
DX: I11.9 Hypertensive heart disease without heart failure (principal); E78.00 Pure hypercholesterolemia, unspecified; G89.29 Other chronic pain; E11.9 Type 2 diabetes mellitus without complications; M54.9 Dorsalgia, unspecified; F31.9 Bipolar disorder, unspecified; Z79.899 Other long term (current) drug therapy; Z56.0 Unemployment, unspecified
CPT/HCPCS: 99285

== ENCOUNTER 2023-03-17 10:09 | Emergency (ER) | payer MEDICAID ==
[~2023-03-17] VITALS: Ht 167.6 cm; Wt 90.0 kg
[2023-03-17 10:19] VITALS: BP 200/83; PULSE 71; RESP 18; O2SAT 99
[2023-03-17] MEDS ORDERED: ketorolac tromethamine 15mg/ml inj. IM ONE (11:40)
[2023-03-17] MEDS ORDERED: PRED20TA PO (11:49)
[2023-03-17] MEDS ORDERED: dexamethasone sod phosphate 10mg/ml inj IM STA (12:01)
[2023-03-17 12:13] VITALS: TEMP 97.8
== END 2023-03-17 12:14 | disposition home or self-care (01) ==
LOC: ER 10:10
DX: M25.561 Pain in right knee (principal); I25.10 Atherosclerotic heart disease of native coronary artery without angina pectoris; E78.00 Pure hypercholesterolemia, unspecified; I25.2 Old myocardial infarction; E11.9 Type 2 diabetes mellitus without complications; G89.29 Other chronic pain; Z95.5 Presence of coronary angioplasty implant and graft; Z56.0 Unemployment, unspecified; Z79.82 Long term (current) use of aspirin; Z79.899 Other long term (current) drug therapy
CPT/HCPCS: 96372; 99283; J1100

== ENCOUNTER 2024-05-06 11:00 | Emergency (ER) | payer MEDICAID ==
[~2024-05-06] VITALS: Ht 160 cm; Wt 75.0 kg
[2024-05-06 11:12] VITALS: BP 149/71; PULSE 83; RESP 18; O2SAT 96
[2024-05-06] MEDS: LIDOcaine 1% W/epiNEPHrine 1:100,000 20ml vial SQ ONE (12:28)
[2024-05-06 12:55] VITALS: TEMP 98.3
== END 2024-05-06 12:57 | disposition home or self-care (01) ==
LOC: ER 11:01
DX: M25.461 Effusion, right knee (principal); M25.561 Pain in right knee; I25.10 Atherosclerotic heart disease of native coronary artery without angina pectoris; E78.00 Pure hypercholesterolemia, unspecified; E11.9 Type 2 diabetes mellitus without complications; I10 Essential (primary) hypertension; I42.9 Cardiomyopathy, unspecified; I25.2 Old myocardial infarction; G89.29 Other chronic pain; M54.9 Dorsalgia, unspecified; F41.9 Anxiety disorder, unspecified; F32.A Depression, unspecified; F17.200 Nicotine dependence, unspecified, uncomplicated; Z90.49 Acquired absence of other specified parts of digestive tract; Z98.890 Other specified postprocedural states; Z56.0 Unemployment, unspecified; Z79.82 Long term (current) use of aspirin; Z79.899 Other long term (current) drug therapy
CPT/HCPCS: 20610; 73564; 99284

== ENCOUNTER 2024-07-20 10:32 | Emergency (ER) | payer MEDICAID ==
[~2024-07-20] VITALS: Ht 160 cm; Wt 75.9 kg
[2024-07-20 10:41] VITALS: BP 222/105; PULSE 81; RESP 18; TEMP 97.6; O2SAT 97
[2024-07-20] MEDS: LIDOcaine 1% 30ml preserv. free vial IJ ONE (11:50)
== END 2024-07-20 12:32 | disposition home or self-care (01) ==
LOC: ER 10:33
DX: S61.012A Laceration without foreign body of left thumb without damage to nail, initial encounter (principal); I25.10 Atherosclerotic heart disease of native coronary artery without angina pectoris; E78.00 Pure hypercholesterolemia, unspecified; I10 Essential (primary) hypertension; E11.9 Type 2 diabetes mellitus without complications; F32.A Depression, unspecified; F41.9 Anxiety disorder, unspecified; Z90.49 Acquired absence of other specified parts of digestive tract; Z98.890 Other specified postprocedural states; Z79.82 Long term (current) use of aspirin; W26.0XXA Contact with knife, initial encounter; Y93.G3 Activity, cooking and baking; Y92.89 Other specified places as the place of occurrence of the external cause; Y99.8 Other external cause status
CPT/HCPCS: 12001; 99282; A6222; A6449